=== PATIENT | female | born 1975 | race Caucasian/White ===

== ENCOUNTER 2017-03-15 16:28 | Emergency (ER) | payer OTHER ==
--- NOTE | 2017-03-15 18:48 | ED ORDER SUMMARY ---
..... Patient: DAKOTAH HOWARD OrderSheet [facility] VisitID: [id number] [place] [address] 41y, F Registration Date/Time: 03/15/2017 ORDER SHEET Weight: 72.5 kg (stated) Allergies: No Known Drug Allergy GENERAL ORDERS: CBC w Diff Urgent (16:58 03/15/2017 MWinterer R.N. per protocol) (17:00 LWhalen R.N.) CMP Urgent (16:58 03/15/2017 MWinterer R.N. per protocol) (17:00 LWhalen R.N.) UA-Culture if indicated Urgent (16:58 03/15/2017 MWinterer R.N. per protocol) (Ack 17:01 PWeiler ER Tech1) Urine Urgent (16:58 03/15/2017 MWinterer R.N. per protocol) (Ack 17:01 PWeiler ER Tech1) Lipase Urgent (17:25 03/15/2017 HBivens A.R.N.P.) (Ack 17:27 PWeiler ER Tech1) (17:32 MWinterer R.N.) Amylase Urgent (17:25 03/15/2017 HBivens A.R.N.P.) (Ack 17:27 PWeiler ER Tech1) (17:32 MWinterer R.N.) EKG - ER Stat (17:55 03/15/2017 HBivens A.R.N.P.) (18:12 PWeiler ER Tech1) MEDICATION ORDERS: K-Dur PO 40 meq (Do not crush or chew, NOW) (17:55 03/15/2017 HBivens A.R.N.P.) (18:16 LWhalen R.N.) IV FLUIDS: Ondansetron IV 4 mg (NOW) (16:58 03/15/2017 MWinterer R.N. per protocol) (16:59 LWhalen R.N.) IV NS : initial bolus none -, then 1000 mL/hr (NOW) (16:58 03/15/2017 MWinterer R.N. per protocol) (16:59 LWhalen R.N.) IV Saline Lock (16:58 03/15/2017 MWinterer R.N. per protocol) (Ack 16:59 LWhalen R.N.) Toradol IV 30 mg (NOW) (17:25 03/15/2017 HBivens A.R.N.P.) (Ack 17:32 MWinterer R.N.) (17:35 MWinterer R.N.) Reglan IV 10 mg (NOW) (17:45 03/15/2017 HBivens A.R.N.P.) (17:56 MCook R.N.) KCl IV 20 meq/100mL (Run no faster than 10 units/hr, HIGH ALERT MEDICATION, NOW, Run no faster than 10 mEq/hr) (17:55 03/15/2017 HBivens A.R.N.P.) (18:15 LWhalen R.N.) ORDER SHEET NOTES: [Electronically signed by Micah Schaeffer R.N. (19:26 03/15/2017)] [Electronically signed by Lori EdouardR.N.PEnrrique (22:59 03/15/2017)] [Electronically locked/signed by Micah Schaeffer R.N. (19:26 03/15/2017)]
--- NOTE | 2017-03-15 18:48 | ED CLINICAL REPORT ---
Clinical Report - Physicians/Mid Levels [facility] [address] [place] [address] 03/15/2017 16:30 Patient: DAKOTAH HOWARD Time Seen: 17:07; initial patient contact, initial documentation, patient care assumed. Arrived- By private vehicle. Historian- patient. HISTORY OF PRESENT ILLNESS Chief Complaint: VOMITING and DIARRHEA. This started yesterday and is still present. It was abrupt in onset. No recent travel. She has had nausea and severe abdominal pain. The pain is described as generalized. She has had severe vomiting. The vomiting has occurred numerous times and has been bilious. No feculent emesis, blood-tinged emesis, coffee-grounds emesis, frankly bloody emesis or unusually dark emesis. She has had severe diarrhea. This has occurred numerous times. It has been watery. No bloody, mucous containing or blood-tinged diarrhea. No black stools, bloody stools, constipation, flank pain or history of possible bad food exposure. No known contact with a sick individual or change in routine. Has not recently been camping or on antibiotics. The illness is described as severe. Similar symptoms previously: Chronically, as bad. ( says she was dx with gastroparesis around 3-5 years ago, by , and she is supposed to be on certain stomach meds, but hasn't taken them yesterday, supposed to be a special diet, but doesn't all follow it and yesterday ate pizza, and is supposed to not smoke or use marijuana but still does). Recent medical care: Not recently seen/assessed. REVIEW OF SYSTEMS No fever, difficulty with urination, dark urine, chest pain or difficulty breathing. She has had severe, generalized muscle aches ('i ache and hurt all over'). All systems otherwise negative, except as recorded above. PAST HISTORY See nurses notes. PROBLEMS: Sprain. Back Pain. Fibromyalgia. Chronic Back Pain. Immunizations. Irritable Bowel Syndrome. Vomiting. Diarrhea. Anxiety Reaction. Depression. Abdominal Pain. Gastroesophageal Reflux. LNMP - Last Normal Menstrual Period. --16:49 Cristi Pickett R.N. ADDITIONAL SURGERIES: Back Surgery. . Knee Surgery. Previous Abdominal Surgery. Tympanostomy Tubes. --16:49 Cristi Pickett R.N. SOCIAL HISTORY Light tobacco smoker. History of occasional drug use: marijuana. No alcohol use. No recent travel. Is a local resident. FAMILY HISTORY Negative. ADDITIONAL NOTES The nursing notes have been reviewed with agreement regarding the chief complaint, HPI, ROS, PMH and patient medications and allergies. PHYSICAL EXAM Vital Signs: 03/15/2017 16:47 BP: 139/75. HR: 77. RR: 18. O2 saturation: 100%. Temp: 97.8 F. Have been reviewed as normal and appear to be correct. Appearance: Alert. Oriented X3. No acute distress. Anxious. Eyes: Pupils equal, round and reactive to light. Eyes normal inspection. Neck: Normal inspection. Neck supple. CVS: Normal heart rate and rhythm. Heart sounds normal. Pulses normal. Respiratory: No respiratory distress. Breath sounds normal. Abdomen: Soft and nontender. Bowel sounds normal. No organomegaly. No mass. Back: Abnormal inspection. Mild CVA tenderness on the right and left. Skin: Skin warm and dry. Normal skin color. No rash. Normal skin turgor. Extremities: Extremities exhibit normal ROM. No lower extremity edema. Neuro: Oriented X 3. No motor deficit. No sensory deficit. LABS, X-RAYS, AND EKG EKG: EKG time: (1809). No acute process. No acute ischemia. Normal EKG. Rate: 68. Normal EKG. The study has been interpreted contemporaneously by me (and dr mcgraw). The EKG appears to be a good tracing. Interpretation time: 1809. Laboratory Tests: CBC w Diff: (ANDIE: 03/15/2017 17:00) ( MsgRcvd 03/15/2017 17:51) Final results Test Result Flag Units (Reference) WHITE BLOOD COUNT 14.4 H K/uL (4.5-11.5) RED BLOOD COUNT 5.32 H M/uL (4.00-5.20) HEMOGLOBIN 15.3 gm/dL (12.0-16.0) HEMATOCRIT 45.8 % (36.0-46.0) MEAN CELL VOLUME 86 fL (80-100) MEAN CORPUSCULAR HGB 29 pg (26-34) MEAN CORPUSCULAR HGB CONC 34 g/dL (31-37) RED CELL DISTRIBUTION WIDTH 14.9 H % (11.6-14.8) PLATELET COUNT 308 K/uL (150-400) NEUTROPHIL % 90.0 H % (50-75) LYMPH % 8.1 L % (25-40) MONO % 1.5 L % (3-14) EOSINOPHIL % 0.2 % (0-4) BASOPHIL % 0.2 % (0-2) Lipase: (ANDIE: 03/15/2017 17:00) ( MsgRcvd 03/15/2017 17:50) Final results Test Result Flag Units (Reference) LIPASE 56 L U/L (73-393) AMYLASE 42 U/L (25-115) CMP: (ANDIE: 03/15/2017 17:00) ( MsgRcvd 03/15/2017 17:57) Final results Test Result Flag Units (Reference) GLUCOSE 134 H mg/dL (70-110) BUN 10 mg/dL (7-18) CREATININE 0.9 mg/dL (0.6-1.3) Estimated GFR >60 mL/min Estimated GFR- >60 mL/min Note: Persistent reduction over 3 months in eGFR<60 mL/min/1.73 m2 defines CKD. Patients with eGFR values>=60 mL/min/1.73 m2 may also have CKD if evidence ofpersistent proteinuria. Additional information may be foundat www.kidney.org. SODIUM 123 L mmol/L (136-145) POTASSIUM 2.8 *L mmol/L (3.5-5.1) CRITICAL RESULTS CALLEDCalled to QUINTIN THOMPSON, ER 03/15/17 [id number] 2 patient identifiers used? YESWas the result read back? YES CHLORIDE 100 mmol/L (98-107) CARBON DIOXIDE 22 mmol/L (21-32) CALCIUM 9.6 mg/dL (8.5-10.1) TOTAL PROTEIN 8.2 g/dL (6.4-8.2) ALBUMIN 4.7 g/dL (3.3-5.0) BILIRUBIN, TOTAL 0.5 mg/dL (0.0-1.0) ALKALINE PHOSPHATASE 92 U/L (46-116) AST (SGOT) 16 U/L (15-37) ALT (SGPT) 24 U/L (12-78) MAGNESIUM 2.0 mg/dL (1.8-2.4) . PROGRESS AND PROCEDURES Course of Care: spouse walked in during end of exam and smelled strongly of marijuana. 03/15/2017 17:56 BP: 115/77. HR: 63. RR: 22. O2 saturation: 100%. Temp: 98 F. Vital Signs: have been reviewed as normal and appear to be correct. Patient/family counseled in person regarding the patient's stable condition, test results and diagnosis. Differential Diagnosis: I considered gastritis, peptic ulcer disease, ischemia, gastroesophageal reflux disease, gastroparesis, Crohn's disease, ulcerative colitis, small bowel obstruction, colonic obstruction, colon cancer, gastroenteritis, cholecystitis, pancreatitis, viral syndrome, enterocolitis, urinary tract infection, hepatitis, sepsis, increased intracranial pressure, drugs, diabetic ketoacidosis, hyperthyroidism, hyperparathyroidism, and psychogenic etiology as a possible cause of vomiting in this patient. This is a partial list of diagnoses considered. Above considerations are based on history, physical exam, reassessment and laboratory data. Differential diagnosis was discussed with patient. Disposition: Discharged home in good and improved condition (18:48). Condition: good and stable. CLINICAL IMPRESSION Intractable vomiting with nausea and dehydration. No volume depletion. Hypokalemia INSTRUCTIONS Take clear liquids only (frequent sips) for the next 24 hours until better. Advance diet as tolerated. Avoid. Warnings: GENERAL WARNINGS: Return or contact your physician immediately if your condition worsens or changes unexpectedly, if not improving as expected, or if other problems arise. SPECIFICALLY, return if you develop pain in the abdomen or pelvis, fever, the inability to keep fluids down, blood in vomitus, blood in diarrhea, fainting or lightheadedness. Prescription Medications: Bentyl 20 mg tablets: take 1 orally every 6 hours as needed. Dispense thirty (30). No refills. Substitution is permissible. Reglan 10 mg tablets: take 1 orally every 6 hours as needed for nausea or vomiting. Dispense fifteen (15). No refills. Follow-up: Follow up with your doctor in about two days even if well. Call for an appointment. Summary of care provided to patient. Understanding of the discharge instructions verbalized by patient. (Electronically signed by Lori Edouard A.R.N.P. 03/15/2017 22:59)
--- NOTE | 2017-03-15 18:48 | ED NURSING NOTES ---
Clinical Report - Nurses [facility] [address] [place] [address] 03/15/2017 16:30 [id number] Triage time 16:47 Mar 15 2017. Acuity: LEVEL 3. Chief Complaint: ABDOMINAL PAIN, NAUSEA, VOMITING and DIARRHEA. EDUARDO COMA SCORE: Eduardo Coma Scale: 15- eyes open spontaneously (4); best verbal response- oriented x 4 (5); best motor response- obeys commands (6). --16:55 Cristi Pickett R.N. 16:47 03/15/17. BP: 139/75. HR: 77. RR: 18. O2 saturation: 100%. Temp: 97.8 F. Pain level now 10/10. --16:55 Cristi Pickett R.N. Weight: 72.5 kg stated. Height/Length: 61 inches Per Patient. BMI: 30.2. --16:50 Cristi Pickett R.N. Medications DULoxetine HCl Oral. --16:52 Cristi Pickett R.N. Gabapentin Oral. --16:52 Cristi Pickett R.N. Hyoscyamine Sulfate Oral. --16:52 Cristi Pickett R.N. Sucralfate Oral. --16:53 Cristi Pickett R.N. Pantoprazole Sodium Oral. --16:53 Cristi Pickett R.N. [place] Carbonate Oral. --16:53 Cristi Pickett R.N. LamoTRIgine Oral. --16:53 Cristi Pickett R.N. Levothyroxine Sodium Oral. --16:54 Cristi Pickett R.N. Metoclopramide HCl Oral. --16:55 Cristi Pickett R.N. Allergies No Known Drug Allergy. --16:49 Cristi Pickett R.N. History Arrived by private vehicle. Historian: patient. Accompanied by family. ( Wasn't feeling well yesterday and couldn't sleep. Began throwing up at 0300.). She has had nausea, vomiting, diarrhea and abdominal pain. Last oral intake by patient was lunch yesterday. PAST MEDICAL HX: Last normal menstrual period- possibly one to two months ago. Has had a tubal ligation. SOCIAL HX: Current every day light tobacco smoker (cigarette)- less than 1/2 a pack per day. History of drug use: marijuana. No alcohol use. No recent travel. No known contact with a sick individual. SELF HARM ASSESSMENT: A self harm assessment was performed. The patient answered "yes" to the question "Have you recently felt down, depressed, or hopeless?" and "no" to the question "Do you have thoughts of harming or killing yourself?". FALL RISK ASSESSMENT: Fall risk assessment completed. No fall risk identified. NUTRITIONAL RISK ASSESSMENT: The nutritional risk assessment revealed no deficiencies. FUNCTIONAL ASSESSMENT: Functional assessment: no impairments noted. LEARNING NEEDS ASSESSMENT: The learning needs assessment revealed no barriers. ABUSE ASSESSMENT: Abuse assessment: (yes) The patient was asked "Do you feel safe in your home?". SKIN INTEGRITY ASSESSMENT: Skin integrity risk assessment completed. No skin integrity risk identified. --16:55 Cristi Pickett R.N. PROBLEMS: Sprain. Back Pain. Fibromyalgia. Chronic Back Pain. Immunizations. Irritable Bowel Syndrome. Vomiting. Diarrhea. Anxiety Reaction. Depression. Abdominal Pain. Gastroesophageal Reflux. LNMP - Last Normal Menstrual Period. --16:49 Cristi Pickett R.N. ADDITIONAL SURGERIES: Back Surgery. . Knee Surgery. Previous Abdominal Surgery. Tympanostomy Tubes. --16:49 Cristi Pickett R.N. Interventions ID band on patient. --16:55 Cristi Pickett R.N. PHYSICAL ASSESSMENT To room via wheelchair. GENERAL / NEURO / PSYCH: Alert. Oriented X 4. Appears in pain, anxious and in distress. HEENT: Mucous membranes are pink. RESPIRATORY: Respirations not labored. Breath sounds within normal limits. CVS: Normal sinus rhythm noted. Capillary refill less than 2 seconds. GI / : The patient has had nausea and diarrhea. Emesis noted. Abdomen soft. Abdominal tenderness. Bowel sounds within normal limits. Normal genitalia. SKIN: Skin is warm and dry. --16:56 Cristi Pickett R.N. NURSING PROGRESS NOTES The initial plan of care for this patient includes an assessment with efforts to address patient positioning, appropriate ambient lighting and comfortable environmental temperature; impairment of the gastrointestinal system. Pulse oximeter and NIBP monitor placed on patient. Patient gowned. Reassurance given. Call light placed in reach. Side rails up x 1. Bed placed in lowest position. Brakes of bed on. --16:58 Cristi Pickett R.N. 16:54 03/15/2017 Ondansetron (Ondansetron HCl) IVP 4 mg given over 2 minute(s) via site #1. Allergies verified and confirmed 5 rights. IV patency established. IV site checked: no pain, redness, or swelling. IV flushed thoroughly pre- and post-medication administration. --16:59 Cristi Pickett R.N. 16:59 03/15/2017 Site #1 started via IV in the right antecubital space with an 20g angiocath, with aseptic technique and good blood return; one attempt. Blood drawn: rainbow set. Labeled in the presence of the patient and sent to the lab. Saline lock flushed with 10 mL saline. --16:59 Cristi Pickett R.N. 16:59 03/15/2017 Started bag #1 1000 mL IV Fluids IV NS (Saline); at 1000 mL/hr over 1 hour(s) via site #1 via dial-a-flow. Allergies verified and confirmed 5 rights. IV patency established. IV site checked: no pain, redness, or swelling. IV flushed thoroughly pre- and post-medication administration. --16:59 Cristi Pickett R.N. 17:35 03/15/2017 Toradol IVP 30 mg given over 1 minute(s) via site #1. Allergies verified and confirmed 5 rights. IV patency established. IV site checked: no pain, redness, or swelling. IV flushed thoroughly pre- and post-medication administration. IVP given by RN. --17:35 Rosalba Royal R.N. 17:55 03/15/17. Critical value relayed to ED by lab. Critical value received by Rosalba, RN. K: 2.8. Critical value read back. Verified lab result and patient ID. ANIMAL CARE SUPERVISOR notifed of critical value. --17:55 Rosalba Royal R.N. 17:56 03/15/2017 Reglan (Metoclopramide HCl) IVP 10 mg given over 2 minute(s) via site #1. Allergies verified and confirmed 5 rights. IV patency established. IV site checked: no pain, redness, or swelling. IV flushed thoroughly pre- and post-medication administration. IVP given by RN. --17:56 Malcolm Leach R.N. 17:56 03/15/17. BP: 115/77 (regular adult cuff) taken on the left arm, while lying. HR: 63. RR: 22. O2 saturation: 100% on room air. Temp: 98 F (oral). --17:58 Malcolm Leach R.N. 18:11 03/15/2017 K-DUR (Potassium Chloride Airam ER) PO Tablets 40 meq given. Allergies verified and confirmed 5 rights. --18:16 Cristi Pickett R.N. 18:15 03/15/2017 Started 20 meq of KCL (Potassium Chloride) IVPB in bag #1 100 mL; at 50 mL/hr over 2 hour(s) via site #1 via IV pump. Allergies verified and confirmed 5 rights. IV patency established. IV site checked: no pain, redness, or swelling. IV flushed thoroughly pre- and post-medication administration. --18:15 Cristi Pickett R.N. ( report given to Micah THOMPSON). --19:03 Cristi Pickett R.N. 19:24 03/15/2017 IV Fluids IV NS Discontinued: completed. Total amount infused: 1000 mL. IV patency established. IV site checked: no pain, redness, or swelling. IV flushed thoroughly. --19:24 Micah Schaeffer R.N. 19:25 03/15/2017 Site #1 removed upon discharge. Manual pressure applied. --19:25 Micah Schaeffer R.N. 19:25 03/15/2017 KCL IVPB Discontinued: completed upon discharge. Total amount infused: 100 mL. IV patency established. IV site checked: no pain, redness, or swelling. IV flushed thoroughly. --19:25 Micah Schaeffer R.N. DISPOSITION / DISCHARGE Condition at departure: improved. No learning barriers present. Discharge instructions provided and reviewed with the patient. Reviewed medication(s) side effects, precautions, dosing and course information. Prescription(s) given to the patient. Patient verbalized understanding. Written instructions provided in Greek. The patient was discharged home and accompanied by spouse. She left the Emergency Department ambulatory and via private vehicle. Spouse driving. --19:26 Micah Schaeffer R.N. 19:25 03/15/17. BP: 117/75. HR: 72. RR: 16. O2 saturation: 97%. Temp: 98.5 F. Pain level now: 0/10. --19:26 Micah Schaeffer R.N. Departure time: 19:26. --19:26 Micah Schaeffer R.N. Locked/Released at 03/15/2017 19:26 by Micah Schaeffer R.N.
--- NOTE | 2017-03-15 18:48 | ED ORDER SUMMARY ---
..... Patient: DAKOTAH HOWARD OrderSheet [facility] VisitID: [id number] [place] [address] 41y, F Registration Date/Time: 03/15/2017 ORDER SHEET Weight: 72.5 kg (stated) Allergies: No Known Drug Allergy GENERAL ORDERS: CBC w Diff Urgent (16:58 03/15/2017 MWinterer R.N. per protocol) (17:00 LWhalen R.N.) CMP Urgent (16:58 03/15/2017 MWinterer R.N. per protocol) (17:00 LWhalen R.N.) UA-Culture if indicated Urgent (16:58 03/15/2017 MWinterer R.N. per protocol) (Ack 17:01 PWeiler ER Tech1) Urine Urgent (16:58 03/15/2017 MWinterer R.N. per protocol) (Ack 17:01 PWeiler ER Tech1) Lipase Urgent (17:25 03/15/2017 HBivens A.R.N.P.) (Ack 17:27 PWeiler ER Tech1) (17:32 MWinterer R.N.) Amylase Urgent (17:25 03/15/2017 HBivens A.R.N.P.) (Ack 17:27 PWeiler ER Tech1) (17:32 MWinterer R.N.) EKG - ER Stat (17:55 03/15/2017 HBivens A.R.N.P.) (18:12 PWeiler ER Tech1) MEDICATION ORDERS: K-Dur PO 40 meq (Do not crush or chew, NOW) (17:55 03/15/2017 HBivens A.R.N.P.) (18:16 LWhalen R.N.) IV FLUIDS: Ondansetron IV 4 mg (NOW) (16:58 03/15/2017 MWinterer R.N. per protocol) (16:59 LWhalen R.N.) IV NS : initial bolus none -, then 1000 mL/hr (NOW) (16:58 03/15/2017 MWinterer R.N. per protocol) (16:59 LWhalen R.N.) IV Saline Lock (16:58 03/15/2017 MWinterer R.N. per protocol) (Ack 16:59 LWhalen R.N.) Toradol IV 30 mg (NOW) (17:25 03/15/2017 HBivens A.R.N.P.) (Ack 17:32 MWinterer R.N.) (17:35 MWinterer R.N.) Reglan IV 10 mg (NOW) (17:45 03/15/2017 HBivens A.R.N.P.) (17:56 MCook R.N.) KCl IV 20 meq/100mL (Run no faster than 10 units/hr, HIGH ALERT MEDICATION, NOW, Run no faster than 10 mEq/hr) (17:55 03/15/2017 HBivens A.R.N.P.) (18:15 LWhalen R.N.) ORDER SHEET NOTES: [Electronically signed by Micah Schaeffer R.N. (19:26 03/15/2017)] [Electronically signed by Lori EdouardR.N.PEnrrique (22:59 03/15/2017)] [Electronically locked/signed by Micah Schaeffer R.N. (19:26 03/15/2017)]
--- NOTE | 2017-03-15 22:59 | ED MED RECONCILIATION SUMMARY ---
Patient: DAKOTAH HOWARD Medication Reconciliation Report [facility] VisitID: [id number] [place] [address] 41y, F Registration Date/Time: 03/15/2017 Weight: 72.5 kg Height/Length: 61 in. BMI: 30.2 ALLERGIES: No Known Drug Allergy The patient's Home Medications are listed below: THE FOLLOWING MEDICATIONS NEED TO BE RECONCILED: DULoxetine HCl Oral Gabapentin Oral Hyoscyamine Sulfate Oral LamoTRIgine Oral Levothyroxine Sodium Oral [place] Carbonate Oral Metoclopramide HCl Oral Pantoprazole Sodium Oral Sucralfate Oral The source(s) of the original Home Medication information: Not obtained. The following Medications were given to the patient in the Emergency Department: Ondansetron [IVP] IVP 4 mg, administered: 03/15/2017 4:54:00 PM IV NS IV Fluids bolus 0, then 1000 mL/hr, administered: 03/15/2017 4:59:00 PM Toradol [IVP] IVP 30 mg, administered: 03/15/2017 5:35:00 PM Reglan [IVP] IVP 10 mg, administered: 03/15/2017 5:56:00 PM KCL [IVPB] IVPB bolus 0, then 20 meq 50 mL/hr, administered: 03/15/2017 6:15:00 PM K-DUR [PO] PO 40 meq, administered: 03/15/2017 6:11:00 PM The following Medications were prescribed to the patient: Bentyl 20 mg tablets: take 1 orally every 6 hours as needed. Dispense thirty (30). No refills. Substitution is permissible. -- Lori Edouard A.R.N.P. Reglan 10 mg tablets: take 1 orally every 6 hours as needed for nausea or vomiting. Dispense fifteen (15). No refills. -- Lori Edouard A.R.N.P.
--- NOTE | 2017-03-15 22:59 | ED MED RECONCILIATION SUMMARY ---
Patient: DAKOTAH HOWARD Medication Reconciliation Report [facility] VisitID: [id number] [place] [address] 41y, F Registration Date/Time: 03/15/2017 Weight: 72.5 kg Height/Length: 61 in. BMI: 30.2 ALLERGIES: No Known Drug Allergy The patient's Home Medications are listed below: THE FOLLOWING MEDICATIONS NEED TO BE RECONCILED: DULoxetine HCl Oral Gabapentin Oral Hyoscyamine Sulfate Oral LamoTRIgine Oral Levothyroxine Sodium Oral [place] Carbonate Oral Metoclopramide HCl Oral Pantoprazole Sodium Oral Sucralfate Oral The source(s) of the original Home Medication information: Not obtained. The following Medications were given to the patient in the Emergency Department: Ondansetron [IVP] IVP 4 mg, administered: 03/15/2017 4:54:00 PM IV NS IV Fluids bolus 0, then 1000 mL/hr, administered: 03/15/2017 4:59:00 PM Toradol [IVP] IVP 30 mg, administered: 03/15/2017 5:35:00 PM Reglan [IVP] IVP 10 mg, administered: 03/15/2017 5:56:00 PM KCL [IVPB] IVPB bolus 0, then 20 meq 50 mL/hr, administered: 03/15/2017 6:15:00 PM K-DUR [PO] PO 40 meq, administered: 03/15/2017 6:11:00 PM The following Medications were prescribed to the patient: Bentyl 20 mg tablets: take 1 orally every 6 hours as needed. Dispense thirty (30). No refills. Substitution is permissible. -- Lori Edouard A.R.N.P. Reglan 10 mg tablets: take 1 orally every 6 hours as needed for nausea or vomiting. Dispense fifteen (15). No refills. -- Lori Edouard A.R.N.P.
--- NOTE | 2017-03-15 22:59 | ED DISCHARGE INSTRUCTIONS ---
Patient: DAKOTAH HOWARD General Instructions [facility] VisitID: [id number] [place] [address] 41y, F Registration Date/Time: 03/15/2017 Intractable vomiting with nausea and dehydration. No volume depletion. Hypokalemia INSTRUCTIONS Take clear liquids only (frequent sips) for the next 24 hours until better. Advance diet as tolerated. Avoid. Warnings: GENERAL WARNINGS: Return or contact your physician immediately if your condition worsens or changes unexpectedly, if not improving as expected, or if other problems arise. SPECIFICALLY, return if you develop pain in the abdomen or pelvis, fever, the inability to keep fluids down, blood in vomitus, blood in diarrhea, fainting or lightheadedness. Prescription Medications: Bentyl 20 mg tablets: take 1 orally every 6 hours as needed. Dispense thirty (30). No refills. Substitution is permissible. Reglan 10 mg tablets: take 1 orally every 6 hours as needed for nausea or vomiting. Dispense fifteen (15). No refills. Follow-up: Follow up with your doctor in about two days even if well. Call for an appointment. Summary of care provided to patient. Understanding of the discharge instructions verbalized by patient. ADDITIONAL INFORMATION Vomiting [6Yr-Adult] Vomiting is a common symptom that may be due to different causes. These include gastroenteritis ("stomach flu"), food poisoning and gastritis. There are other more serious causes of vomiting which may be hard to diagnose early in the illness. Therefore, it is important to watch for the warning signs listed below. The main danger from repeated vomiting is dehydration. This is due to excess loss of water and minerals from the body. When this occurs, body fluids must be replaced. Home Care: If symptoms are severe, rest at home for the next 24 hours. You may use acetaminophen (Tylenol) or ibuprofen (Motrin, Advil) to control fever, unless another medicine was prescribed. [NOTE : If you have chronic liver or kidney disease or ever had a stomach ulcer or GI bleeding, talk with your doctor before using these medicines.] (Aspirin should never be used in anyone under 18 years of age who is ill with a fever. It may cause severe liver damage.) Avoid tobacco and alcohol use, which may worsen your symptoms. If medicines for vomiting were prescribed, take as directed. Once vomiting stops, then follow these guidelines: During The First 12-24 Hours follow the diet below: FRUIT JUICES: Apple, grape juice, clear fruit drinks, and electrolyte replacement drinks. BEVERAGES: Soft drinks without caffeine; mineral water (plain or flavored), decaffeinated tea and coffee. SOUPS: Clear broth, consomm and bouillon DESSERTS: Plain gelatin, popsicles and fruit juice bars. As you feel better, you may add 6-8 ounces of yogurt per day. During The Next 24 Hours you may add the following to the above: Hot cereal, plain toast, bread, rolls, crackers Plain noodles, rice, mashed potatoes, chicken noodle or rice soup Unsweetened canned fruit (avoid pineapple), bananas Limit caffeine and chocolate. No spices or seasonings except salt. During The Next 24 Hours Gradually resume a normal diet, as you feel better and your symptoms lessen. Follow Up with your doctor as advised if you are not improving over the next 2-3 days. Get Prompt Medical Attention if any of the following occur: Constant right-sided lower abdominal pain or increasing general abdominal pain Continued vomiting (unable to keep liquids down) for 24 hours Frequent diarrhea (more than 5 times a day); blood (red or black color) or mucus in diarrhea Reduced urine output or extreme thirst Weakness, dizziness or fainting Unusually drowsy or confused Fever of 100.4F (38C) oral or higher, not better with fever medication Yellow color of the eyes or skin Hypokalemia Hypokalemia means a low level of potassium in the blood. This most often occurs in patients who take diuretics (water pills). It can also occur due to severe vomiting or diarrhea. A mild case usually causes no symptoms. It is only found with blood testing. More severe potassium loss causes generalized weakness, muscle or abdominal cramping, heart palpitations (rapid or irregular heartbeats) and low blood pressure. Home Care: 1) Take any potassium supplements prescribed. 2) Eat foods rich in potassium. The highest amount is found in artichoke, baked potatoes, spinach, cantaloupe, honeydew melon, cod, halibut, salmon, and scallops. White, red, or lakhani beans are also very good sources. A modest amount is found in orange juice, bananas, carrots, and tomato juice. 3) Certain types of diuretics (water pills), such as Lasix (furosemide), require that you take potassium supplements for as long as you take the diuretic pills. If you are taking a diuretic, discuss the need for potassium supplements with your doctor. Follow Up with your doctor for a repeat blood test within the next week or as advised by our staff. Get Prompt Medical Attention if any of the following occur: -- Increased weakness -- Feeling dizzy -- Irregular heartbeat, extra beats or very fast heart rate -- Fainting spell Clear Liquid Diet Clear liquids are any liquid that you can see through as well as those that are very easy to digest. This is used while the body is recovering from irritation or infection of the stomach or intestinal tract. It may also be used before special procedures or surgery. This diet is to be used no more than three days. You may include the following items. Adults Adults should drink a total of 23 quarts of liquid per day. It may be easier to drink small frequent servings rather than a few large ones. Liquids can include: Fruit juices.Strained orange juice or lemonade (no pulp), apple, grape and cranberry juice, clear fruit drinks, sports drinks Beverages.Sport drinks, sodas, mineral water (plain or flavored), tea, black coffee, liquid gelatin (add twice the recommended amount of water) Soups.Clear broth, consomm, bouillon Desserts.Plain gelatin, popsicles, fruit juice bars Children Over 2 years old The following liquids are acceptable for children over age 2: Fruit juices.Strained orange juice or lemonade (no pulp), apple, grape and cranberry juice, clear fruit drinks Beverages. Sports drinks, sodas, mineral water (plain or flavored), tea, liquid gelatin (add twice the recommended amount of water) Soups. Clear broth, consomm, bouillon Desserts. Plain gelatin, popsicles, fruit juice bars Children under 2 years old Oral rehydration fluids such are available at drug stores and most grocery stores without a prescription. York Diet A bland diet is used for patients with an upset stomach. It consists of foods that are mild and easy to digest. It is better to eat small frequent meals rather than three large meals a day. BEVERAGES OK: Fruit juices, non-caffeinated teas and coffee, non-carbonated titus AVOID: Carbonated beverage, caffeinated tea and coffee, all alcoholic beverages BREAD OK: Refined white, wheat or rye bread, tavo or soda crackers, [place] toast, plain rolls, bagels AVOID: Whole-grain bread CEREAL OK: Refined cereals: cooked or ready to eat AVOID: Whole grain cereals and granola, or those containing bran, seeds or nuts DESSERTS OK: Peanut butter and all others except those to "avoid" AVOID: Chocolate, cocoa, coconut, popcorn, nuts, seeds, jam, marmalade FRUITS OK: Canned, cooked, frozen or fresh fruits without seeds or tough skin AVOID: Olives, skin and seeds of fruit MEATS OK: All fresh or preserved meat, fish and fowl AVOID: Any that are prepared with those spices to "avoid" CHEESE & EGGS OK: Eggs, cottage cheese, cream cheese, other cheeses AVOID: All cheeses made with those spices to "avoid" POTATOES & PASTA OK: Potato, rice, macaroni, noodles, spaghetti AVOID: None SOUPS OK: All soups without heavy seasoning AVOID: Soups made with those spices to "avoid" VEGETABLES OK: Canned, cooked, fresh or frozen mildly flavored vegetables without seeds, skins or coarse fiber AVOID: Vegetables prepared with those spices to "avoid"; skin and seeds of vegetables and those with coarse fiber SPICES OK: Salt, lemon and ambler juice, vinegar, all extracts, félix, cinnamon, thyme, mace, allspice, paprika AVOID: [place] powder, cloves, pepper, seed spices, garlic, gravy pickles, highly seasoned salad dressings Clear Liquid Diet Clear liquids are any liquid that you can see through as well as those that are very easy to digest. This is used while the body is recovering from irritation or infection of the stomach or intestinal tract. It may also be used before special procedures or surgery. This diet is to be used no more than three days. You may include the following items. Adults Adults should drink a total of 23 quarts of liquid per day. It may be easier to drink small frequent servings rather than a few large ones. Liquids can include: Fruit juices.Strained orange juice or lemonade (no pulp), apple, grape and cranberry juice, clear fruit drinks, sports drinks Beverages.Sport drinks, sodas, mineral water (plain or flavored), tea, black coffee, liquid gelatin (add twice the recommended amount of water) Soups.Clear broth, consomm, bouillon Desserts.Plain gelatin, popsicles, fruit juice bars Children Over 2 years old The following liquids are acceptable for children over age 2: Fruit juices.Strained orange juice or lemonade (no pulp), apple, grape and cranberry juice, clear fruit drinks Beverages. Sports drinks, sodas, mineral water (plain or flavored), tea, liquid gelatin (add twice the recommended amount of water) Soups. Clear broth, consomm, bouillon Desserts. Plain gelatin, popsicles, fruit juice bars Children under 2 years old Oral rehydration fluids such are available at drug stores and most grocery stores without a prescription. Dicyclomine Hydrochloride Oral tablet What is this medicine? DICYCLOMINE (dye TAYLER lim meen) is used to treat bowel problems including irritable bowel syndrome. How should I use this medicine? Take this medicine by mouth with a glass of water. Follow the directions on the prescription label. It is best to take this medicine on an empty stomach, 30 minutes to 1 hour before meals. Take your medicine at regular intervals. Do not take your medicine more often than directed. Talk to your restorative care technician regarding the use of this medicine in children. Special care may be needed. While this drug may be prescribed for children as young as 6 months of age for selected conditions, precautions do apply. Patients over 65 years old may have a stronger reaction and need a smaller dose. What side effects may I notice from receiving this medicine? Side effects that you should report to your doctor or health healthcare management consultant as soon as possible: agitation, nervousness, confusion difficulty swallowing dizziness, drowsiness fast or slow heartbeat hallucinations pain or difficulty passing urine Side effects that usually do not require medical attention (report to your doctor or health healthcare management consultant if they continue or are bothersome): constipation headache nausea or vomiting sexual difficulty What may interact with this medicine? amantadine antacids benztropine digoxin disopyramide medicines for allergies, colds and breathing difficulties medicines for alzheimer's disease medicines for anxiety or sleeping problems medicines for depression or psychotic disturbances medicines for diarrhea medicines for pain metoclopramide tegaserod What if I miss a dose? If you miss a dose, take it as soon as you can. If it is almost time for your next dose, take only that dose. Do not take double or extra doses. Where should I keep my medicine? Keep out of the reach of children. Store at room temperature below 30 degrees C (86 degrees F). Protect from light. Throw away any unused medicine after the expiration date. What should I tell my health care provider before I take this medicine? They need to know if you have any of these conditions: difficulty passing urine esophagus problems or heartburn glaucoma heart disease, or previous heart attack myasthenia gravis prostate trouble stomach infection, or obstruction ulcerative colitis an unusual or allergic reaction to dicyclomine, other medicines, foods, dyes, or preservatives or trying to get breast-feeding What should I watch for while using this medicine? You may get drowsy, dizzy, or have blurred vision. Do not drive, use machinery, or do anything that needs mental alertness until you know how this medicine affects you. To reduce the risk of dizzy or fainting spells, do not sit or stand up quickly, especially if you are an older patient. Alcohol can make you more drowsy, avoid alcoholic drinks. Stay out of bright light and wear sunglasses if this medicine makes your eyes more sensitive to light. Avoid extreme heat (hot tubs, saunas). This medicine can cause you to sweat less than normal. Your body temperature could increase to dangerous levels, which may lead to heat stroke. Antacids can stop this medicine from working. If you get an upset stomach and want to take an antacid, make sure there is an interval of at least 1 to 2 hours before or after you take this medicine. Your mouth may get dry. Chewing sugarless gum or sucking hard candy, and drinking plenty of water may help. Contact your doctor if the problem does not go away or is severe. Metoclopramide Hydrochloride Oral tablet What is this medicine? METOCLOPRAMIDE (met oh kloe PRA mide) is used to treat the symptoms of gastroesophageal reflux disease (GERD) like heartburn. It is also used to treat people with slow emptying of the stomach and intestinal tract. How should I use this medicine? Take this medicine by mouth with a glass of water. Follow the directions on the prescription label. Take this medicine on an empty stomach, about 30 minutes before eating. Take your doses at regular intervals. Do not take your medicine more often than directed. Do not stop taking except on the advice of your doctor or health healthcare management consultant. A special MedGuide will be given to you by the pharmacist with each prescription and refill. Be sure to read this information carefully each time. Talk to your restorative care technician regarding the use of this medicine in children. Special care may be needed. What side effects may I notice from receiving this medicine? Side effects that you should report to your doctor or health healthcare management consultant as soon as possible: allergic reactions like skin rash, itching or hives, swelling of the face, lips, or tongue abnormal production of milk in females breast enlargement in both males and females change in the way you walk difficulty moving, speaking or swallowing drooling, lip smacking, or rapid movements of the tongue excessive sweating fever involuntary or uncontrollable movements of the eyes, head, arms and legs irregular heartbeat or palpitations muscle twitches and spasms unusually weak or tired Side effects that usually do not require medical attention (report to your doctor or health healthcare management consultant if they continue or are bothersome): change in sex drive or performance depressed mood diarrhea difficulty sleeping headache menstrual changes restless or nervous What may interact with this medicine? acetaminophen cyclosporine digoxin medicines for blood pressure medicines for diabetes, including insulin medicines for hay fever and other allergies medicines for depression, especially an Monoamine Oxidase Inhibitor (MAOI) medicines for Parkinson's disease, like levodopa medicines for sleep or for pain tetracycline What if I miss a dose? If you miss a dose, take it as soon as you can. If it is almost time for your next dose, take only that dose. Do not take double or extra doses. Where should I keep my medicine? Keep out of the reach of children. Store at room temperature between 20 and 25 degrees C (68 and 77 degrees F). Protect from light. Keep container tightly closed. Throw away any unused medicine after the expiration date. What should I tell my health care provider before I take this medicine? They need to know if you have any of these conditions: breast cancer depression diabetes heart failure high blood pressure kidney disease liver disease Parkinson's disease or a movement disorder pheochromocytoma seizures stomach obstruction, bleeding, or perforation an unusual or allergic reaction to metoclopramide, procainamide, sulfites, other medicines, foods, dyes, or preservatives or trying to get breast-feeding What should I watch for while using this medicine? It may take a few weeks for your stomach condition to start to get better. However, do not take this medicine for longer than 12 weeks. The longer you take this medicine, and the more you take it, the greater your chances are of developing serious side effects. If you are an elderly patient, a female patient, or you have diabetes, you may be at an increased risk for side effects from this medicine. Contact your doctor immediately if you start having movements you cannot control such as lip smacking, rapid movements of the tongue, involuntary or uncontrollable movements of the eyes, head, arms and legs, or muscle twitches and spasms. Patients and their families should watch out for worsening depression or thoughts of suicide. Also watch out for any sudden or severe changes in feelings such as feeling anxious, agitated, panicky, irritable, hostile, aggressive, impulsive, severely restless, overly excited and hyperactive, or not being able to sleep. If this happens, especially at the beginning of treatment or after a change in dose, call your doctor. Do not treat yourself for high fever. Ask your doctor or health healthcare management consultant for advice. You may get drowsy or dizzy. Do not drive, use machinery, or do anything that needs mental alertness until you know how this drug affects you. Do not stand or sit up quickly, especially if you are an older patient. This reduces the risk of dizzy or fainting spells. Alcohol can make you more drowsy and dizzy. Avoid alcoholic drinks. You have been given the following additional information: Vomiting (6Y-Adult) Hypokalemia Diet, Clear Liquid Diet, [place] (Adult) Diet, Clear Liquid Dicyclomine Hydrochloride Oral tablet Metoclopramide Hydrochloride Oral tablet (Electronically signed by Lori Edouard A.R.N.P. 03/15/2017 22:59)
--- NOTE | 2017-03-15 22:59 | ED MAR SUMMARY ---
..... Medication Administration Record [facility] [address] [place] [address] Patient: DAKOTAH HOWARD Visit ID: [id number] 41y, F Weight: 72.5 kg Height/Length: 61 in BMI: 30.2 ALLERGIES: No Known Drug Allergy Given 16:54 03/15/2017 Cristi Pickett R.N. Medication Administered: ONDANSETRON [IVP] (ONDANSETRON HCL), Dose: 4 mg IVP over 2 minute(s), Site: #1. Medication Ordered: Ondansetron IV 4 mg (NOW). Start 16:59 03/15/2017 Cristi Pickett R.N., Stop 19:24 03/15/2017 Micah Schaeffer R.N. Medication Administered: IV NS (SALINE), Dose: IV Fluids over 1 hour(s), Rate: 1000 mL/hr, Dispensed: 1000 mL bag, Site: #1 right AC. Medication Ordered: IV NS : initial bolus none -, then 1000 mL/hr (NOW). Given 17:35 03/15/2017 Rosalba Royal R.N. Medication Administered: TORADOL [IVP], Dose: 30 mg IVP over 1 minute(s), Site: #1 right AC. Medication Ordered: Toradol IV 30 mg (NOW). Given 17:56 03/15/2017 Malcolm Leach R.N. Medication Administered: REGLAN [IVP] (METOCLOPRAMIDE HCL), Dose: 10 mg IVP over 2 minute(s), Site: #1 right AC. Medication Ordered: Reglan IV 10 mg (NOW). Given 18:11 03/15/2017 Cristi Pickett R.N. Medication Administered: K-DUR [PO] (POTASSIUM CHLORIDE DAMIEN ER), Dose: 40 meq Tablets PO. Medication Ordered: K-Dur PO 40 meq (Do not crush or chew, NOW). Start 18:15 03/15/2017 Cristi Pickett R.N., Stop 19:25 03/15/2017 Micah Schaeffer R.N. Medication Administered: KCL [IVPB] (POTASSIUM CHLORIDE), Dose: 20 meq IVPB over 2 hour(s), Rate: 50 mL/hr, Dispensed: 100 mL bag, Site: #1 right AC. Medication Ordered: KCl IV 20 meq/100mL (Run no faster than 10 units/hr, HIGH ALERT MEDICATION, NOW, Run no faster than 10 mEq/hr).
--- NOTE | 2017-03-15 22:59 | ED MAR SUMMARY ---
..... Medication Administration Record [facility] [address] [place] [address] Patient: DAKOTAH HOWARD Visit ID: [id number] 41y, F Weight: 72.5 kg Height/Length: 61 in BMI: 30.2 ALLERGIES: No Known Drug Allergy Given 16:54 03/15/2017 Cristi Pickett R.N. Medication Administered: ONDANSETRON [IVP] (ONDANSETRON HCL), Dose: 4 mg IVP over 2 minute(s), Site: #1. Medication Ordered: Ondansetron IV 4 mg (NOW). Start 16:59 03/15/2017 Cristi Pickett R.N., Stop 19:24 03/15/2017 Micah Schaeffer R.N. Medication Administered: IV NS (SALINE), Dose: IV Fluids over 1 hour(s), Rate: 1000 mL/hr, Dispensed: 1000 mL bag, Site: #1 right AC. Medication Ordered: IV NS : initial bolus none -, then 1000 mL/hr (NOW). Given 17:35 03/15/2017 Rosalba Royal R.N. Medication Administered: TORADOL [IVP], Dose: 30 mg IVP over 1 minute(s), Site: #1 right AC. Medication Ordered: Toradol IV 30 mg (NOW). Given 17:56 03/15/2017 Malcolm Leach R.N. Medication Administered: REGLAN [IVP] (METOCLOPRAMIDE HCL), Dose: 10 mg IVP over 2 minute(s), Site: #1 right AC. Medication Ordered: Reglan IV 10 mg (NOW). Given 18:11 03/15/2017 Cristi Pickett R.N. Medication Administered: K-DUR [PO] (POTASSIUM CHLORIDE DAMIEN ER), Dose: 40 meq Tablets PO. Medication Ordered: K-Dur PO 40 meq (Do not crush or chew, NOW). Start 18:15 03/15/2017 Cristi Pickett R.N., Stop 19:25 03/15/2017 Micah Schaeffer R.N. Medication Administered: KCL [IVPB] (POTASSIUM CHLORIDE), Dose: 20 meq IVPB over 2 hour(s), Rate: 50 mL/hr, Dispensed: 100 mL bag, Site: #1 right AC. Medication Ordered: KCl IV 20 meq/100mL (Run no faster than 10 units/hr, HIGH ALERT MEDICATION, NOW, Run no faster than 10 mEq/hr).
== END 2017-03-15 19:26 | disposition home or self-care (01) ==
LOC: ED SRH 16:28
DX: R11.2 Nausea with vomiting, unspecified (principal); E87.6 Hypokalemia; E86.0 Dehydration; K21.9 Gastro-esophageal reflux disease without esophagitis; F12.10 Cannabis abuse, uncomplicated; F17.210 Nicotine dependence, cigarettes, uncomplicated
CPT/HCPCS: 90100; 92235; 92530; 92720; 95059